=== PATIENT | male | born 1990 | race Caucasian/White ===

== ENCOUNTER 2018-12-20 10:22 | Emergency (ER) | payer SELFPAY ==
[~2018-12-20] VITALS: Ht 160 cm; Wt 72.8 kg
--- NOTE | 2018-12-20 10:30 | NUR ---
NO ANSWER IN LOBBY
[2018-12-20 10:49] VITALS: BP 150/112
--- NOTE | 2018-12-20 11:27 | NUR ---
PT HERE FOR ANXIETY. STATES FEELING OF "DOOM" INCREASING RECENTLY. RECENT SI ATTEMPT BUT CURRENTLY DENIES THOUGHTS.
[2018-12-20] MEDS ORDERED: LORazepam 0.5MG TABLET ONE (12:17)
[2018-12-20] MEDS ORDERED: LORazepam 0.5MG TABLET PO ONE (12:30)
--- NOTE | 2018-12-20 12:32 | NUR ---
THIS RN WENT INTO TO ROOM TO MEDICATE PT, PT NOT IN ROOM, THIS RN CHECKED ER AND SURROUNDING BATHROOMS, PT NOT FOUND. NOTED TO HAVE ELOPED.
== END 2018-12-20 12:34 | disposition left against medical advice (07) ==
LOC: ED 12:28
DX: F43.9 Reaction to severe stress, unspecified (principal); F17.200 Nicotine dependence, unspecified, uncomplicated; F32.9 Major depressive disorder, single episode, unspecified
CPT/HCPCS: 99284

== ENCOUNTER 2019-04-01 20:01 | Emergency (ER) | payer BC ==
[~2019-04-01] VITALS: Ht 160 cm; Wt 79.0 kg
[2019-04-01 20:04] VITALS: BP 170/100
[2019-04-01 20:24] LABS: BASOPHILS # (AUTO) 0.04 x10^3/uL (0-0.1); BASOPHILS % (AUTO) 0 % (0-1); EOSINOPHILS # (AUTO) 0.13 x10^3/uL (0-0.4); EOSINOPHILS % (AUTO) 1 % (1-7); LYMPHOCYTES % (AUTO) 18 % (22-44); MD NO; MEAN CORPUSCULAR HEMOGLOBIN 30.8 pg (27.5-34.5); MEAN CORPUSCULAR HGB CONC 33.1 g/dL (33.2-36.2); MEAN CORPUSCULAR VOLUME 92.9 fL (81-97); MEAN PLATELET VOLUME 7.9 fL (7.4-10.4); MONOCYTES # (AUTO) 0.44 x10^3/uL (0.2-0.8); MONOCYTES % (AUTO) 4 % (2-9); NEUTROPHILS % (AUTO) 77 % (42-75); PLATELET COUNT 296 x10^3/uL (130-400); RED BLOOD COUNT 5.34 x10^6/uL (4.38-5.82); RED CELL DISTRIBUTION WIDTH 13.2 % (9.4-14.8)
[2019-04-01 20:36] LABS: ALBUMIN 3.5 g/dL (3.4-5.0); ANION GAP 5 mmol/L (5-15); CALCIUM 8.1 mg/dL (8.5-10.1); CHLORIDE 111 mmol/L (98-107); CREATININE 0.94 mg/dL (0.7-1.3); SALICYLATE LEVEL < 1.7 mg/dL (2.8-20.0)
--- NOTE | 2019-04-01 21:03 | NUR ---
FIRST CONTACT WITH PT. PT STATES "I HAVE A PROBLEM WITH ANXIETY AND PANIC ATTACKS, I'VE HAD SEVERAL TODAY AND NEED HELP". "I HAVE THOUGHTS OF WANTING TO JUMP OFF A BRIDGE BUT I WANTED TO COME IN BEFORE IT GOT THAT BAD". PT TEARFUL IN ROOM AND REPORTS INCREASED LIFE STRESSORS. DENIES HI. PT'S AOX4. RESPS EVEN AND UNLABORED.
--- NOTE | 2019-04-01 21:04 | NUR ---
PT AMB TO BR WITH STEADY GAIT.
--- NOTE | 2019-04-01 21:13 | NUR ---
PT PROVIDED URINE SAMPLE. UA SENT.
--- NOTE | 2019-04-01 21:13 | NUR ---
EDMD AT BEDSIDE TO EVALUATE AT THIS TIME.
[2019-04-01 21:33] LABS: AMPHETAMINE SCREEN, URINE Positive (Negative); BARBITURATE SCREEN, URINE Negative (Negative); BENZODIAZEPINE SCREEN, URINE Negative (Negative); CANNABINOID SCREEN, URINE Positive (Negative); COCAINE SCREEN, URINE Negative (Negative); METHADONE SCREEN, URINE Negative (Negative); OPIATE SCREEN, URINE Negative (Negative)
--- NOTE | 2019-04-01 22:15 | NUR ---
PT [place]ING [place] RESPS EVEN AND UNLABORED. ROOM REMAINS SECURE.
--- NOTE | 2019-04-01 23:04 | NUR ---
REPORT GIVEN TO TELE PSYCH DR AT THIS TIME.
--- NOTE | 2019-04-01 23:55 | NUR ---
PT STATES"NOTHING CHANGE. I'M HOMELESS, I'M DEPRESSES. I NEED HELP." EDMD NOTIFIED AND EDMD OK'D TO DC AT THIS TIME.
--- NOTE | 2019-04-02 | NUR ---
Patient given discharge instructions and they have confirmed that they understand the instructions. TAXI VOUCHER GIVEN AT CT.
== END 2019-04-02 | disposition home or self-care (01) ==
LOC: ED 21:09
DX: F32.0 Major depressive disorder, single episode, mild (principal); F15.129 Other stimulant abuse with intoxication, unspecified; F17.200 Nicotine dependence, unspecified, uncomplicated
CPT/HCPCS: 36415; 80048; 80307; 82040; 85025; 99283